=== PATIENT | male | born 1995 | race Caucasian/White ===

== ENCOUNTER 2017-03-27 19:25 | Emergency (ER) | payer SELFPAY ==
[~2017-03-27 19:25] MED LIST: AGM875T PO; CYCL10TA45 PO; PRD20T PO; TRAM50TA2 PO
[2017-03-27] MEDS ORDERED: LACTATED RINGERS 1,000 ML IV ONE (20:51)
[2017-03-27] MEDS ORDERED: HYOSCYAMINE 0.125 MG (LEVSIN) TAB SL ONE (21:00)
[2017-03-27] MEDS ORDERED: KETOROLAC 30 MG/ML VIAL IVP ONE (21:00)
[2017-03-27] MEDS ORDERED: ONDANSETRON 4 MG/2 ML (SDV) Z0FRAN IVP ONE (21:00)
[2017-03-27] MEDS ORDERED: RX-HYOSCYAMINE 0.125 MG SL (LEVSIN) PPK#6 SL STA (21:41)
[2017-03-27] MEDS ORDERED: RX-ONDANSETRON 4 MG ODT (ZOFRAN) PPK #4 SL STA (21:41)
== END 2017-03-27 22:07 | disposition home or self-care (01) ==
DX: R10.30 Lower abdominal pain, unspecified (principal); R11.2 Nausea with vomiting, unspecified; F17.210 Nicotine dependence, cigarettes, uncomplicated

== ENCOUNTER 2017-04-02 02:10 | Observation (INO) | payer OTHER ==
[~2017-04-02] VITALS: Ht 170.2 cm; Wt 63.5 kg
[2017-04-02] VITALS (14 sets, daily range): BP systolic 103–149; BP diastolic 59–116
[2017-04-02 02:22] LABS: BASOPHILS % (AUTO) 0 % (0-10); EOSINOPHILS # (AUTO) 0.1 10^3/uL (0.0-0.3); EOSINOPHILS % (AUTO) 1 % (0-10); LYMPHOCYTES # (AUTO) 4.6 X 10^3 (1.0-4.0); LYMPHOCYTES % (AUTO) 44 % (12-44); MEAN CORPUSCULAR HEMOGLOBIN 29 PG (25-34); MEAN CORPUSCULAR HGB CONC 34 G/DL (32-36); MEAN CORPUSCULAR VOLUME 84 FL (80-99); MONOCYTES # (AUTO) 0.7 X 10^3 (0.0-1.0); MONOCYTES % (AUTO) 7 % (0-12); NEUTROPHILS % (AUTO) 48 % (42-75); PLATELET COUNT 237 10^3/uL (130-400); RED BLOOD COUNT 5.56 10^6/uL (4.35-5.85); RED CELL DISTRIBUTION WIDTH 14.9 % (10.0-14.5); WHITE BLOOD COUNT 10.4 10^3/uL (4.3-11.0)
[2017-04-02 02:23] LABS: BILIRUBIN,URINE NEGATIVE (NEGATIVE); KETONES,URINE NEGATIVE (NEGATIVE); LEUKOCYTE ESTERASE ,URINE NEGATIVE (NEGATIVE); NITRITE,URINE NEGATIVE (NEGATIVE); PH,URINE 6 (5-9); PROTEIN,URINE NEGATIVE (NEGATIVE); UROBILINOGEN,URINE NORMAL (NORMAL)
[2017-04-02 02:31] LABS: SQUAMOUS EPITHELIAL CELL,UR RARE /HPF
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
[2017-04-02 02:43] LABS: ALANINE AMINOTRANSFERASE 40 U/L (0-55); ALBUMIN 4.9 GM/DL (3.2-4.5); ALCOHOL 231 MG/DL (<10); ANION GAP 16 MMOL/L (5-14); ASPARTATE AMINO TRANSFERASE 47 U/L (5-34); BILIRUBIN,TOTAL 0.5 MG/DL (0.1-1.0); BLOOD UREA NITROGEN 11 MG/DL (7-18); BUN/CREATININE RATIO 10 (0-20); CALCIUM 9.8 MG/DL (8.5-10.1); CARBON DIOXIDE 22 MMOL/L (21-32); CHLORIDE 106 MMOL/L (98-107); CREATININE SERUM 1.14 MG/DL (0.60-1.30); GFR ESTIMATED > 60; GLUCOSE 79 MG/DL (70-105); HEMOLYSIS 10 (-100-29); ICTERUS 0.5 (-100-1.9); LIPEMIA 21 (-100-49); POTASSIUM 3.5 MMOL/L (3.6-5.0); SALICYLATE < 5.0 MG/DL (5.0-20.0); SODIUM 144 MMOL/L (135-145); TOTAL PROTEIN 8.1 GM/DL (6.4-8.2)
[2017-04-02 02:44] LABS: ACETAMINOPHEN < 10 UG/ML (10-30)
[2017-04-02] MEDS ORDERED: LACTATED RINGERS 1,000 ML IV ONE (04:10)
[2017-04-02] MEDS ORDERED: LORazepam INJ 2 MG/ML (ATIVAN) VIAL ONE (04:15)
[2017-04-02] MEDS ORDERED: NICOTINE 21 MG (NICODERM) PATCH TD ONE ×2 (04:15→04:30)
[2017-04-02] MEDS ORDERED: NICOTINE 21 MG (NICODERM) PATCH ONE (04:15)
[2017-04-02] MEDS ORDERED: LORazepam INJ 2 MG/ML (ATIVAN) VIAL IVP PRN (04:15)
[2017-04-02] MEDS ORDERED: LACTATED RINGERS 1,000 ML IV SCH ×2 (04:15→04:30)
[2017-04-02] MEDS: LORazepam INJ 2 MG/ML (ATIVAN) VIAL IV PRN ×4 (04:34→13:57)
[2017-04-02] MEDS ORDERED: KCL 20 MEQ TAB (K-DUR) PO ONE (05:30)
[2017-04-02] MEDS ORDERED: POTASSIUM CL 10MEQ/50ML IVPB 50 ML IV SCH (06:00)
[2017-04-02] MEDS ORDERED: KCL 20 MEQ TAB (K-DUR) PO SCH (06:00)
[2017-04-02] MEDS ORDERED: MAGNESIUM 1 GM/100 ML IVPB 100 ML IV SCH (06:00)
[2017-04-02] MEDS ORDERED: NICOTINE 21 MG (NICODERM) PATCH TD SCH ×2 (09:00)
[2017-04-02] MEDS ORDERED: THIAMINE INJECTION 100 MG, FOLIC ACID INJECTION 1 MG, VITAMIN MULTI INJECTION 10 ML, MA... IV SCH ×5 (09:00)
--- NOTE | 2017-04-02 09:13 | Short Stay Summary-Hospitalist ---
HPI History of Present Illness: HPI/Chief Complaint CC: Suicide attempt HPI: This is a 21-year-old white [place] and commit [place] but was stopped by police force. His UDS was positive for opiates but otherwise his blood alcohol level was elevated and currently has no medical issues that would preclude from discharge home since medically stable and will evaluate with mental health screening prior to. He is refusing to wake up and talk with no evidence of any medical issue precluding those activities. Source: RN/MD Exam Limitations: clinical condition (refuses to wake up from slumber) Date Seen 04/02/17 Time Seen by Provider: 08:45 Attending Physician Nika Mendieta DO PCP No,Local Physician Referring Physician Date of Admission Apr 02, 2017 at 03:30 Home Medications & Allergies Home Medications Reviewed patient Home Medication Reconciliation Form Allergies Allergies Coded Allergies No Known Drug Allergies (Unverified12/09/11) Past Djtgdpt-Fuirtw-Xmarqz Hx Patient Social History Marrital Status: single Employed/Student: unemployed Alcohol Use: Regular Use Recreational Drug Use: Yes (THC) Smoking Status: Current Everyday Smoker Type Used: Cigarettes 2nd Hand Smoke Exposure: Yes Physical Abuse Screen: No Sexual Abuse: No Recent Foreign Travel: No Contact w/other who traveled: No Recent Hopitalizations: No Recent Infectious Disease Expo: No Immunizations Up To Date Tetanus Booster (TDap): Unknown Seasonal Allergies Seasonal Allergies: No Surgeries HX Surgeries: Yes (LEFT FEMUR FX/ORIF WITH PLATES/SCREWS) Surgeries: Orthopedic Respiratory Hx Respiratory Disorders: No Cardiovascular Hx Cardiovascular Disorders: No Neurological Hx Neurological Disorders: No Reproductive System Hx Reproductive Disorders: No Genitourinary Hx Genitourinary Disorders: No Gastrointestinal Hx Gastrointestinal Disorders: No Musculoskeletal Hx Musculoskeletal Disorders: Yes (LEFT FEMUR FX) Musculoskeletal Disorders: Fractures Endocrine Hx Endocrine Disorders: No HEENT HX ENT Disorders: No Cancer Hx Cancer: No Psychosocial Hx Psychiatric Problems: Yes Behavioral Health Disorders: ADD/ADHD, Anxiety, Suicide Attempts, Depression Integumentary HX Skin/Integumentary Disorder: Yes Skin/Integumentary Disorders: Psoriasis Blood Transfusions Hx Blood Disorders: No Review of Systems Date Seen by Provider: Apr 02, 2017 Time Seen by Provider: 08:45 ROS-Unable to Obtain: refuses to interview with me Constitutional: see HPI Physical Exam Physical Exam Vital Signs Vital Sign - Last 12Hours 04/02/17 02:14 Temp 97.0 Pulse 83 Resp 18 B/P (MAP) 138/100 Pulse Ox 100 O2 Delivery Room Air Capillary Refill : Less Than 3 Seconds General Appearance: No Apparent Distress, WD/WN, Thin Eyes: Bilateral Eye Normal Inspection, Bilateral Eye PERRL Respiratory: Chest Non Tender, Lungs Clear, Normal Breath Sounds, No Accessory Muscle Use, No Respiratory Distress Cardiovascular: Regular Rate, Rhythm, No Edema, No Gallop, No JVD, No Murmur, Normal Peripheral Pulses Gastrointestinal: Normal Bowel Sounds, No Organomegaly, No Pulsatile Mass, Non Tender, Soft Back: Normal Inspection, No CVA Tenderness, No Vertebral Tenderness Extremity: Normal Capillary Refill, Normal Inspection, Normal Range of Motion, Non Tender, No Calf Tenderness, No Pedal Edema Neurologic/Psychiatric: Other (refusing to participate in interview process) Skin: Normal Color, Warm/Dry Lymphatic: No Adenopathy Results Results/Procedures Lab Laboratory Tests 04/02/17 02:13 Short Stay Diagnosis Discharge Diagnosis-Short Stay Admission Diagnosis Assessment: Suicide attempt Depression History of suicide attempts Alcohol intoxication Opiates on urine drug screen Final Discharge Diagnosis Assessment: Suicide attempt Depression History of suicide attempts Alcohol intoxication Opiates on urine drug screen Conclusion Plan Plan: Discharge once mental health screening performed Clinical Quality Measures DVT/VTE Risk/Contraindication: Risk Factor Score Per Nursin RFS Level Per Nursing on Admit: 2=Moderate NIKA MENDIETA DO Apr 02, 2017 09:12
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
--- OUTSIDE RECORDS SUMMARY | 2017-04-02 09:59 | XMS REPORT | Continuity of Care Document ---
Author Author [facility] Address Unknown Phone Unavailable Allergies Active Description Code Type Severity Reaction Onset Reported/Identified Relationship to Patient Clinical Status Yes No Known Drug Allergies [id number] Drug Allergy Unknown N/ A 12/09/2011 Medications [...] Status Pt. Type Provider Facility Loc./Unit Complaint [id number] 10/05/2013 16:18:00 10/05/2013 23: 59:59 CLS Outpatient REED KEN, MACRINA [id number] 05/12/2013 12:49:00 Document Registration [id number] 04/01/2013 15:05:00 Document Registration [id number] 03/19/2013 16:04:00 Document Registration [id number] 03/09/2013 13:50:00 Document Registration
[2017-04-03] MEDS ORDERED: PATCH REMOVAL TP SCH (08:59)
[2017-04-03] MEDS ORDERED: NICOTINE 21 MG (NICODERM) PATCH TD SCH (09:00)
== END 2017-04-02 09:11 ==
LOC: EDUNIT# 02:10 → ER 02:12 → UNDOADMOB 03:30 → ICU 03:30 → UNDODISOB 14:00
PROVIDERS: ADMIT Internal Medicine; ATTEND Internal Medicine
DX: R45.851 Suicidal ideations (principal); F33.9 Major depressive disorder, recurrent, unspecified; F10.129 Alcohol abuse with intoxication, unspecified; Y90.7 Blood alcohol level of 200-239 mg/100 ml; F17.210 Nicotine dependence, cigarettes, uncomplicated; F12.90 Cannabis use, unspecified, uncomplicated
CPT/HCPCS: 36415; 80053; 80306; 80320; 80329; 81000; 84443; 85025; 93005; G0378